=== PATIENT | male | born 1960 | race Caucasian/White ===

== ENCOUNTER 2018-04-18 04:04 | Observation (INO) | payer MEDICARE, OTHER ==
[2018-04-18] MEDS ORDERED: methylPREDNISolone Sodium Succinate 40 MG/1 ML SDV IVPUSH ONE (04:28)
[2018-04-18] MEDS ORDERED: Albuterol/Ipratropium 3.0-0.5 MG/3 ML Neb Soln NEB ONE ×2 (04:29→05:52)
--- NOTE | 2018-04-18 05:31 | EDM.PDOC ---
ED HPI GENERAL MEDICAL PROBLEM - General Chief Complaint: Cardiovascular Problem Stated Complaint: Chest Pressure Time Seen by Provider: 04/18/18 04:06 Source of Information: Reports: Patient, EMS Notes Reviewed History Limitations: Reports: No Limitations - History of Present Illness INITIAL COMMENTS - FREE TEXT/NARRATIVE: Patient is brought in this morning with complaints of chest pressure and SOB. He states he had a hard time getting off of the floor. He is coughing with dyspnea. Reports to have a history of CHF and has taken 80 mg of lasix today. He does not take a daily dose and only uses it as needed. He felt his breathing was distressed enough to take 2 doses. He was given an additional 40 mg IV lasix in the ambulance. He denies any headache, abdominal pain, blood in urine or stool. He states he has had 2 stents, the last placed 2 years ago and he is still on plavix due to his CAD. Onset: Today, Sudden Duration: Getting Worse Severity: Moderate Worsens with: Reports: Movement Associated Symptoms: Reports: Chest Pain, Shortness of Breath Chest Pressure Pain Score (Numeric/FACES): 4 - Related Data Allergies Allergy/AdvReac Type Severity Reaction Status Date / Time No Known Allergies Allergy Verified 04/18/18 04:05 ED ROS GENERAL - Review of Systems Review Of Systems: See Below Constitutional: Reports: No Symptoms HEENT: Reports: No Symptoms Respiratory: Reports: Shortness of Breath, Wheezing Cardiovascular: Reports: Other (chest pressure) Endocrine: Reports: No Symptoms GI/Abdominal: Reports: No Symptoms : Reports: No Symptoms Musculoskeletal: Reports: No Symptoms Skin: Reports: No Symptoms Neurological: Reports: No Symptoms Psychiatric: Reports: No Symptoms Hematologic/Lymphatic: Reports: No Symptoms Immunologic: Reports: No Symptoms ED EXAM, GENERAL - Physical Exam Exam: See Below Exam Limited By: No Limitations General Appearance: Alert, WD/WN, Mild Distress Eye Exam: Bilateral Eye: EOMI, PERRL Ears: Normal TMs Ear Exam: Bilateral Ear: TM normal Nose: Normal Inspection, Normal Mucosa, No Blood Throat/Mouth: Normal Inspection, Normal Lips, Normal Teeth, Normal Gums, Normal Oropharynx, Normal Voice, No Airway Compromise Head: Atraumatic, Normocephalic Neck: Normal Inspection, Supple, Non-Tender, Full Range of Motion Respiratory/Chest: No Respiratory Distress, No Accessory Muscle Use, Chest Non- Tender, Wheezing Cardiovascular: Normal Peripheral Pulses, Regular Rate, Rhythm, No Edema Peripheral Pulses: 2+: Posterior Tibial (L), Posterior Tibial (R), Dorsalis Pedis (L), Dorsalis Pedis (R) GI/Abdominal: Normal Bowel Sounds, Soft, Non-Tender, No Organomegaly, No Distention, No Abnormal Bruit, No Mass Back Exam: Normal Inspection, Full Range of Motion, NT Extremities: Normal Inspection, Normal Range of Motion, Non-Tender, Normal Capillary Refill, No Pedal Edema Neurological: Alert, Oriented, CN II-XII Intact, Normal Cognition, Normal Gait, Normal Reflexes, No Motor/Sensory Deficits Psychiatric: Normal Affect, Normal Mood Skin Exam: Warm, Dry, Intact, Normal Color, No Rash Lymphatic: No Adenopathy Course - Vital Signs Last Recorded V/S: Last Vital Signs Temp 36.7 C 04/18/18 06:35 Pulse 73 04/18/18 06:35 Resp 20 04/18/18 06:35 BP 148/94 H 04/18/18 06:35 Pulse Ox 95 04/18/18 06:35 - Orders/Labs/Meds Orders: Active Orders 24 hr Category Date Time Status Patient Status [ADT] Routine ADT 04/18/18 06:08 Ordered RT Aerosol Therapy [RC] ASDIRECTED Care 04/18/18 04:29 Ordered RT Aerosol Therapy [RC] ASDIRECTED Care 04/18/18 05:53 Ordered Chest 2V [CR] Stat Exams 04/18/18 04:06 Ordered Labs: Laboratory Tests 04/18/18 04/18/18 04/18/18 Range/Units 04:50 04:50 04:50 WBC 7.5 (4.0-10.0) x10^3/uL RBC 4.37 L (4.5-6.0) x10^6/uL Hgb 15.9 (14.0-18.0) g/dL Hct 44.8 (40.0-52.0) % MCV 102.5 H (78.0-93.0) fL MCH 36.4 H (26.0-32.0) pg MCHC 35.5 (32.0-36.0) g/dL RDW Coeff of Rhonda 12.3 (10.0-15.0) % Plt Count 216 (130-400) x10^3/uL Neut % (Auto) 78.3 (50.0-80.0) % Lymph % (Auto) 11.9 L (25.0-50.0) % [place] % (Auto) 8.4 (2.0-11.0) % Eos % (Auto) 1.1 (0.0-4.0) % Baso % (Auto) 0.3 (0.2-1.2) % PT 9.6 (9.6-11.4) SEC INR 0.9 L (2.0-3.5) Sodium 135 L (136-145) mmol/L Potassium 3.8 (3.5-5.1) mmol/L Chloride 105 (98-107) mmol/L Carbon Dioxide 26 (21-32) mmol/L Anion Gap 7.8 L (10-20) mmol/L BUN 27 H (7-18) mg/dL Creatinine 1.6 H (0.70-1.30) mg/dL Est Cr Clr Drug Dosing 57.80 mL/min Estimated GFR (MDRD) 44 Glucose 92 (74-106) mg/dL Calcium 9.2 (8.5-10.1) mg/dL Corrected Calcium 9.20 (8.5-10.1) mg/dL Magnesium (1.8-2.4) mg/dL Total Bilirubin 0.6 (0.2-1.0) mg/dL AST 23 (15-37) U/L ALT 39 (16-63) U/L Alkaline Phosphatase 76 (46-116) U/L Creatine Kinase (39-308) U/L POC Troponin I (0.00-0.08) ng/mL NT-Pro-B Natriuret Pep (<=125) pg/mL Total Protein 7.8 (6.4-8.2) g/dL Albumin 4.0 (3.4-5.0) g/dL Globulin 3.8 Albumin/Globulin Ratio 1.05 TSH, Ultra Sensitive 2.814 (0.358-3.74) uIU/mL 04/18/18 04/18/18 04/18/18 Range/Units 04:50 04:56 05:15 WBC (4.0-10.0) x10^3/uL RBC (4.5-6.0) x10^6/uL Hgb (14.0-18.0) g/dL Hct (40.0-52.0) % MCV (78.0-93.0) fL MCH (26.0-32.0) pg MCHC (32.0-36.0) g/dL RDW Coeff of Rhonda (10.0-15.0) % Plt Count (130-400) x10^3/uL Neut % (Auto) (50.0-80.0) % Lymph % (Auto) (25.0-50.0) % [place] % (Auto) (2.0-11.0) % Eos % (Auto) (0.0-4.0) % Baso % (Auto) (0.2-1.2) % PT (9.6-11.4) SEC INR (2.0-3.5) Sodium (136-145) mmol/L Potassium (3.5-5.1) mmol/L Chloride (98-107) mmol/L Carbon Dioxide (21-32) mmol/L Anion Gap (10-20) mmol/L BUN (7-18) mg/dL Creatinine (0.70-1.30) mg/dL Est Cr Clr Drug Dosing mL/min Estimated GFR (MDRD) Glucose (74-106) mg/dL Calcium (8.5-10.1) mg/dL Corrected Calcium (8.5-10.1) mg/dL Magnesium 1.3 L (1.8-2.4) mg/dL Total Bilirubin (0.2-1.0) mg/dL AST (15-37) U/L ALT (16-63) U/L Alkaline Phosphatase (46-116) U/L Creatine Kinase 135 (39-308) U/L POC Troponin I 0.01 (0.00-0.08) ng/mL NT-Pro-B Natriuret Pep 666 H (<=125) pg/mL Total Protein (6.4-8.2) g/dL Albumin (3.4-5.0) g/dL Globulin Albumin/Globulin Ratio TSH, Ultra Sensitive (0.358-3.74) uIU/mL Meds: Medications Discontinued Medications Generic Name Dose Route Start Last Admin Trade Name Freq PRN Reason Stop Dose Admin Albuterol/Ipratropium 3 ml 04/18/18 04:29 04/18/18 04:46 Duoneb 3.0-0.5 Mg/3 Ml NEB 04/18/18 04:30 3 ml ONETIME ONE Administration Albuterol/Ipratropium 3 ml 04/18/18 05:52 04/18/18 06:09 Duoneb 3.0-0.5 Mg/3 Ml NEB 04/18/18 05:53 3 ml ONETIME ONE Administration Methylprednisolone Sodium Succinate 40 mg 04/18/18 04:28 04/18/18 04:46 Solu-Medrol IVPUSH 04/18/18 04:29 40 mg ONETIME ONE Administration Departure - Departure Time of Disposition: 06:24 Disposition: Refer to Observation Condition: Good Clinical Impression: CHF (congestive heart failure), Asthma exacerbation, Hypomagnesemia Referrals: Yahaira Hines DO [Primary Care Provider] - Forms: ED Department Discharge - Problem List & Annotations (1) Asthma exacerbation SNOMED Code(s): 080741153 Code(s): J45.901 - UNSPECIFIED ASTHMA WITH (ACUTE) EXACERBATION Status: Acute Priority: Medium Current Visit: Yes Qualifiers: Asthma severity: unspecified severity Asthma persistence: unspecified Qualified Code(s): J45.901 - Unspecified asthma with (acute) exacerbation (2) CHF (congestive heart failure) SNOMED Code(s): 69245456 Code(s): I50.9 - HEART FAILURE, UNSPECIFIED Status: Acute Priority: Medium Current Visit: Yes Qualifiers: Heart failure type: unspecified Heart failure chronicity: unspecified Qualified Code(s): I50.9 - Heart failure, unspecified - Problem List Review Problem List Initiated/Reviewed/Updated: Yes - My Orders Last 24 Hours: My Active Orders 04/18/18 04:06 Chest 2V [CR] Stat 04/18/18 04:29 RT Aerosol Therapy [RC] ASDIRECTED 04/18/18 05:53 RT Aerosol Therapy [RC] ASDIRECTED 04/18/18 06:08 Patient Status [ADT] Routine - Assessment/Plan Last 24 Hours: My Active Orders 04/18/18 04:06 Chest 2V [CR] Stat 04/18/18 04:29 RT Aerosol Therapy [RC] ASDIRECTED 04/18/18 05:53 RT Aerosol Therapy [RC] ASDIRECTED 04/18/18 06:08 Patient Status [ADT] Routine Assessment:: asthma exacerbation chf hypomagnesemia Plan: Plan 1. Admit for observation 2. Asthma exacerbation - treat with scheduled nebulized inhaler, systemic corticosteroid 3. CHF exacerbation - diuretic administration, strict I and O q shift, repeat chest x-ray in AM 4. chest pressure - serial troponin trend, CTA chest 5. hypomagnesemia - replace with IV magnesium
[2018-04-18 05:44] LABS: ANION GAP 7.8 mmol/L (10-20)
[2018-04-18] MEDS ORDERED: Ondansetron 4 MG Tab.DIS PO PRN (07:45)
[2018-04-18] MEDS ORDERED: Acetaminophen 325 MG Tab PO PRN (07:45)
[2018-04-18] MEDS ORDERED: Albuterol/Ipratropium 3.0-0.5 MG/3 ML Neb Soln NEB PRN (07:45)
[2018-04-18] MEDS ORDERED: Magnesium Sulfate/Water 2 GM in Premix Bag 1 BAG IV ONE (07:50)
[2018-04-18] MEDS ORDERED: Sodium Chloride 0.9% 1,000 ML IV SCH (08:00)
[2018-04-18] MEDS ORDERED: ALPRAZolam 0.5 MG Tab PO PRN (08:07)
[2018-04-18] MEDS: Morphine 2 MG/ML Syringe IVPUSH PRN ×2 (08:09→10:43)
[2018-04-18] MEDS ORDERED: FLUoxetine 20 MG Cap PO SCH ×2 (08:15→20:00)
[2018-04-18] MEDS ORDERED: Aspirin 81 MG Tab.EC PO SCH ×2 (08:15→20:00)
[2018-04-18] MEDS ORDERED: atorvaSTATin 40 MG Tab PO SCH ×2 (08:15→20:00)
[2018-04-18] MEDS ORDERED: Clopidogrel 75 MG Tab PO SCH ×2 (08:15→20:00)
[2018-04-18] MEDS ORDERED: Spironolactone 25 MG Tab PO SCH ×2 (08:15→20:00)
[2018-04-18] MEDS ORDERED: amLODIPine 2.5 MG Tab PO SCH ×2 (08:15→20:00)
[2018-04-18] MEDS ORDERED: Metoprolol Tartrate 50 MG Tab PO SCH (08:45)
[2018-04-18] MEDS ORDERED: buPROPion 100 MG Tab.SR PO SCH (09:00)
[2018-04-18] MEDS ORDERED: Iopamidol 612 MG/ML 100 ML Bottle IVPUSH ONE (10:13)
[2018-04-18] MEDS ORDERED: Gabapentin 300 MG Cap PO SCH (12:00)
--- NOTE | 2018-04-18 12:14 | PCM.SN ---
- Free Text/Narrative Note: Chest CTA negative for PE, pneumo or hemothorax. No pneumonia seen. Minimal fluid to right side; possible inflammatory or infectious process. Troponin at 0800 slightly elevated from earliest troponin draw but still negative at 0.017. Discussed care with patient. Will discharge on albuteral inhaler if next lab draws are once again negative for inflammatory or cardiac elevations.
--- NOTE | 2018-04-18 13:32 | PCM.DCSUM1 ---
Discharge Summary - Hospital Course Diagnosis: Stroke: No - Discharge Data Discharge Date: 04/18/18 Discharge Disposition: Home, Self-Care 01 Condition: Good - Discharge Diagnosis/Problem(s) (1) Asthma exacerbation SNOMED Code(s): 579980779 ICD Code: J45.901 - UNSPECIFIED ASTHMA WITH (ACUTE) EXACERBATION Status: Acute Priority: Medium Current Visit: Yes Qualifiers: Asthma severity: unspecified severity Asthma persistence: unspecified Qualified Code(s): J45.901 - Unspecified asthma with (acute) exacerbation (2) CHF (congestive heart failure) SNOMED Code(s): 21866968 ICD Code: I50.9 - HEART FAILURE, UNSPECIFIED Status: Acute Priority: Medium Current Visit: Yes Qualifiers: Heart failure type: unspecified Heart failure chronicity: unspecified Qualified Code(s): I50.9 - Heart failure, unspecified - Patient Summary/Data Recommended Follow-up Testing/Procedures: You should follow up with a primary doctor for further investigations as to whether you have COPD or another reactive airway disease like asthma. Your labs today were largely negative for any cardiac abnormalities. Your BNP was elevated at 666, creatinine was 1.6, magnesium 1.3 You may additionally need consultation with a lung specialist, or computer tape librarian for testing and prescriptions for appropriate medications. Please return if you experience similar symptoms. Call if you have any further questions or concerns. - Patient Instructions Diet: Heart Healthy Diet Fluid Restriction: 1500 mL Activity: As Tolerated Showering/Bathing: May Shower Notify Provider of: Fever, Increased Pain, Swelling and Redness, Drainage, Nausea and/or Vomiting - Discharge Plan *PRESCRIPTION DRUG MONITORING PROGRAM REVIEWED*: Not Applicable *COPY OF PRESCRIPTION DRUG MONITORING REPORT IN PATIENT ANTHONY: Not Applicable Home Medications: Home Meds ALPRAZolam [Xanax] 0.5 mg PO TID PRN 04/18/18 [History] Aspirin [Halfprin] 81 mg PO DAILY 04/18/18 [History] Clopidogrel [Plavix] 75 mg PO DAILY 04/18/18 [History] FLUoxetine HCl [Prozac] 80 mg PO DAILY 04/18/18 [History] Furosemide 40 mg PO DAILY 04/18/18 [History] Gabapentin [Neurontin] 300 mg PO TID 04/18/18 [History] Losartan Potassium [Cozaar] 100 mg PO DAILY 04/18/18 [History] Metoprolol Tartrate [Lopressor] 100 mg PO BID 04/18/18 [History] Spironolactone [Aldactone] 25 mg PO DAILY 04/18/18 [History] Testosterone [Androgel] 5 gm TD DAILY 04/18/18 [History] amLODIPine Besylate [Norvasc] 2.5 mg PO DAILY 04/18/18 [History] atorvaSTATin Calcium [Lipitor] 80 mg PO DAILY 04/18/18 [History] buPROPion HCl [Wellbutrin SR] 150 mg PO BID 04/18/18 [History] Forms: ED Department Discharge Referrals: Yahaira Hines DO [Primary Care Provider] - - General Info Date of Service: 04/18/18 Admission Dx/Problem (Free Text: shortness of breath, chest pressure Functional Status: Reports: Pain Controlled - Review of Systems General: Reports: No Symptoms HEENT: Reports: No Symptoms Pulmonary: Reports: Shortness of Breath, Wheezing Cardiovascular: Reports: Chest Pain Gastrointestinal: Reports: No Symptoms Genitourinary: Reports: No Symptoms Musculoskeletal: Reports: No Symptoms Skin: Reports: No Symptoms Neurological: Reports: No Symptoms Psychiatric: Reports: No Symptoms - Patient Data Vitals - Most Recent: Last Vital Signs Temp 36.2 C 04/18/18 09:44 Pulse 81 04/18/18 09:48 Resp 16 04/18/18 09:44 BP 138/91 H 04/18/18 09:48 Pulse Ox 96 04/18/18 09:44 Weight - Most Recent: 108.635 kg I&O - Last 24 hours: Intake & Output 04/17/18 04/18/18 04/18/18 22:59 06:59 14:59 Intake Total 600 680 Balance 600 680 Lab Results - Last 24 hrs: Laboratory Results - last 24 hr 04/18/18 04/18/18 04/18/18 Range/Units 04:50 04:50 04:50 WBC 7.5 (4.0-10.0) x10^3/uL RBC 4.37 L (4.5-6.0) x10^6/uL Hgb 15.9 (14.0-18.0) g/dL Hct 44.8 (40.0-52.0) % MCV 102.5 H (78.0-93.0) fL MCH 36.4 H (26.0-32.0) pg MCHC 35.5 (32.0-36.0) g/dL RDW Coeff of Rhonda 12.3 (10.0-15.0) % Plt Count 216 (130-400) x10^3/uL Neut % (Auto) 78.3 (50.0-80.0) % Lymph % (Auto) 11.9 L (25.0-50.0) % [place] % (Auto) 8.4 (2.0-11.0) % Eos % (Auto) 1.1 (0.0-4.0) % Baso % (Auto) 0.3 (0.2-1.2) % PT 9.6 (9.6-11.4) SEC INR 0.9 L (2.0-3.5) D-Dimer, Quantitative (<=0.58) mg/LFEU Sodium 135 L (136-145) mmol/L Potassium 3.8 (3.5-5.1) mmol/L Chloride 105 (98-107) mmol/L Carbon Dioxide 26 (21-32) mmol/L Anion Gap 7.8 L (10-20) mmol/L BUN 27 H (7-18) mg/dL Creatinine 1.6 H (0.70-1.30) mg/dL Est Cr Clr Drug Dosing 57.80 mL/min Estimated GFR (MDRD) 44 Glucose 92 (74-106) mg/dL Lactic Acid (0.4-2.0) mmol/L Calcium 9.2 (8.5-10.1) mg/dL Corrected Calcium 9.20 (8.5-10.1) mg/dL Magnesium (1.8-2.4) mg/dL Total Bilirubin 0.6 (0.2-1.0) mg/dL AST 23 (15-37) U/L ALT 39 (16-63) U/L Alkaline Phosphatase 76 (46-116) U/L Creatine Kinase (39-308) U/L POC Troponin I (0.00-0.08) ng/mL Troponin I (<=0.056) ng/mL NT-Pro-B Natriuret Pep (<=125) pg/mL Total Protein 7.8 (6.4-8.2) g/dL Albumin 4.0 (3.4-5.0) g/dL Globulin 3.8 Albumin/Globulin Ratio 1.05 TSH, Ultra Sensitive 2.814 (0.358-3.74) uIU/mL 04/18/18 04/18/18 04/18/18 Range/Units 04:50 04:56 05:15 WBC (4.0-10.0) x10^3/uL RBC (4.5-6.0) x10^6/uL Hgb (14.0-18.0) g/dL Hct (40.0-52.0) % MCV (78.0-93.0) fL MCH (26.0-32.0) pg MCHC (32.0-36.0) g/dL RDW Coeff of Rhonda (10.0-15.0) % Plt Count (130-400) x10^3/uL Neut % (Auto) (50.0-80.0) % Lymph % (Auto) (25.0-50.0) % [place] % (Auto) (2.0-11.0) % Eos % (Auto) (0.0-4.0) % Baso % (Auto) (0.2-1.2) % PT (9.6-11.4) SEC INR (2.0-3.5) D-Dimer, Quantitative (<=0.58) mg/LFEU Sodium (136-145) mmol/L Potassium (3.5-5.1) mmol/L Chloride (98-107) mmol/L Carbon Dioxide (21-32) mmol/L Anion Gap (10-20) mmol/L BUN (7-18) mg/dL Creatinine (0.70-1.30) mg/dL Est Cr Clr Drug Dosing mL/min Estimated GFR (MDRD) Glucose (74-106) mg/dL Lactic Acid (0.4-2.0) mmol/L Calcium (8.5-10.1) mg/dL Corrected Calcium (8.5-10.1) mg/dL Magnesium 1.3 L (1.8-2.4) mg/dL Total Bilirubin (0.2-1.0) mg/dL AST (15-37) U/L ALT (16-63) U/L Alkaline Phosphatase (46-116) U/L Creatine Kinase 135 (39-308) U/L POC Troponin I 0.01 (0.00-0.08) ng/mL Troponin I (<=0.056) ng/mL NT-Pro-B Natriuret Pep 666 H (<=125) pg/mL Total Protein (6.4-8.2) g/dL Albumin (3.4-5.0) g/dL Globulin Albumin/Globulin Ratio TSH, Ultra Sensitive (0.358-3.74) uIU/mL 04/18/18 04/18/18 04/18/18 Range/Units 08:20 08:20 12:00 WBC (4.0-10.0) x10^3/uL RBC (4.5-6.0) x10^6/uL Hgb (14.0-18.0) g/dL Hct (40.0-52.0) % MCV (78.0-93.0) fL MCH (26.0-32.0) pg MCHC (32.0-36.0) g/dL RDW Coeff of Rhonda (10.0-15.0) % Plt Count (130-400) x10^3/uL Neut % (Auto) (50.0-80.0) % Lymph % (Auto) (25.0-50.0) % [place] % (Auto) (2.0-11.0) % Eos % (Auto) (0.0-4.0) % Baso % (Auto) (0.2-1.2) % PT (9.6-11.4) SEC INR (2.0-3.5) D-Dimer, Quantitative 1.09 H (<=0.58) mg/LFEU Sodium (136-145) mmol/L Potassium (3.5-5.1) mmol/L Chloride (98-107) mmol/L Carbon Dioxide (21-32) mmol/L Anion Gap (10-20) mmol/L BUN (7-18) mg/dL Creatinine (0.70-1.30) mg/dL Est Cr Clr Drug Dosing mL/min Estimated GFR (MDRD) Glucose (74-106) mg/dL Lactic Acid (0.4-2.0) mmol/L Calcium (8.5-10.1) mg/dL Corrected Calcium (8.5-10.1) mg/dL Magnesium (1.8-2.4) mg/dL Total Bilirubin (0.2-1.0) mg/dL AST (15-37) U/L ALT (16-63) U/L Alkaline Phosphatase (46-116) U/L Creatine Kinase 144 (39-308) U/L POC Troponin I (0.00-0.08) ng/mL Troponin I < 0.017 < 0.017 (<=0.056) ng/mL NT-Pro-B Natriuret Pep (<=125) pg/mL Total Protein (6.4-8.2) g/dL Albumin (3.4-5.0) g/dL Globulin Albumin/Globulin Ratio TSH, Ultra Sensitive (0.358-3.74) uIU/mL 04/18/18 04/18/18 Range/Units 12:00 12:00 WBC (4.0-10.0) x10^3/uL RBC (4.5-6.0) x10^6/uL Hgb (14.0-18.0) g/dL Hct (40.0-52.0) % MCV (78.0-93.0) fL MCH (26.0-32.0) pg MCHC (32.0-36.0) g/dL RDW Coeff of Rhonda (10.0-15.0) % Plt Count (130-400) x10^3/uL Neut % (Auto) (50.0-80.0) % Lymph % (Auto) (25.0-50.0) % [place] % (Auto) (2.0-11.0) % Eos % (Auto) (0.0-4.0) % Baso % (Auto) (0.2-1.2) % PT (9.6-11.4) SEC INR (2.0-3.5) D-Dimer, Quantitative (<=0.58) mg/LFEU Sodium (136-145) mmol/L Potassium (3.5-5.1) mmol/L Chloride (98-107) mmol/L Carbon Dioxide (21-32) mmol/L Anion Gap (10-20) mmol/L BUN (7-18) mg/dL Creatinine (0.70-1.30) mg/dL Est Cr Clr Drug Dosing mL/min Estimated GFR (MDRD) Glucose (74-106) mg/dL Lactic Acid 1.5 (0.4-2.0) mmol/L Calcium (8.5-10.1) mg/dL Corrected Calcium (8.5-10.1) mg/dL Magnesium 2.3 (1.8-2.4) mg/dL Total Bilirubin (0.2-1.0) mg/dL AST (15-37) U/L ALT (16-63) U/L Alkaline Phosphatase (46-116) U/L Creatine Kinase (39-308) U/L POC Troponin I (0.00-0.08) ng/mL Troponin I (<=0.056) ng/mL NT-Pro-B Natriuret Pep (<=125) pg/mL Total Protein (6.4-8.2) g/dL Albumin (3.4-5.0) g/dL Globulin Albumin/Globulin Ratio TSH, Ultra Sensitive (0.358-3.74) uIU/mL Med Orders - Current: Current Medications Acetaminophen (Tylenol) 650 mg PO Q4H PRN PRN Reason: Pain (Mild 1-3)/fever Last Admin: 04/18/18 10:42 Dose: 650 mg Albuterol/Ipratropium (Duoneb 3.0-0.5 Mg/3 Ml) 3 ml NEB Q4H PRN PRN Reason: dyspnea/wheezing Last Admin: 04/18/18 08:28 Dose: 3 ml Alprazolam (Xanax) 0.5 mg PO TID PRN PRN Reason: Anxiety Amlodipine Besylate (Norvasc) 2.5 mg PO DAILY@1999 [facility] Aspirin (Halfprin) 81 mg PO DAILY@1999 [facility] Atorvastatin Calcium (Lipitor) 80 mg PO DAILY@1999 [facility] Bupropion HCl (Wellbutrin Sr) 150 mg PO BID [facility] Last Admin: 04/18/18 09:46 Dose: 150 mg Clopidogrel Bisulfate (Plavix) 75 mg PO DAILY@1999 [facility] Fluoxetine HCl (Prozac) 80 mg PO DAILY@1999 [facility] Furosemide (Lasix) 40 mg IV BIDDIURETIC [facility] Gabapentin (Neurontin) 300 mg PO TID [facility] Last Admin: 04/18/18 11:59 Dose: 300 mg Sodium Chloride (Normal Saline) 1,000 mls @ 25 mls/hr IV ASDIRECTED [facility] Last Admin: 04/18/18 08:11 Dose: 25 mls/hr Losartan Potassium (Cozaar) 100 mg PO DAILY@1999 [facility] Metoprolol Tartrate (Lopressor) 100 mg PO BID [facility] Last Admin: 04/18/18 09:48 Dose: 100 mg Morphine Sulfate (Morphine) 2 mg IVPUSH Q2H PRN PRN Reason: Pain (severe 7-10) Last Admin: 04/18/18 10:43 Dose: 2 mg Ondansetron HCl (Zofran Odt) 4 mg PO Q6H PRN PRN Reason: nausea, able to take PO Spironolactone (Aldactone) 25 mg PO DAILY@1999 [facility] Discontinued Medications Albuterol/Ipratropium (Duoneb 3.0-0.5 Mg/3 Ml) 3 ml NEB ONETIME ONE Stop: 04/18/18 04:30 Last Admin: 04/18/18 04:46 Dose: 3 ml Albuterol/Ipratropium (Duoneb 3.0-0.5 Mg/3 Ml) 3 ml NEB ONETIME ONE Stop: 04/18/18 05:53 Last Admin: 04/18/18 06:09 Dose: 3 ml Amlodipine Besylate (Norvasc) 2.5 mg PO DAILY [facility] Last Admin: 04/18/18 08:58 Dose: Not Given Aspirin (Halfprin) 81 mg PO DAILY [facility] Last Admin: 04/18/18 08:59 Dose: Not Given Atorvastatin Calcium (Lipitor) 80 mg PO DAILY [facility] Last Admin: 04/18/18 09:00 Dose: Not Given Clopidogrel Bisulfate (Plavix) 75 mg PO DAILY [facility] Last Admin: 04/18/18 08:58 Dose: Not Given Fluoxetine HCl (Prozac) 80 mg PO DAILY [facility] Last Admin: 04/18/18 08:58 Dose: Not Given Magnesium Sulfate 2 gm/ Premix 50 mls @ 25 mls/hr IV ONETIME ONE Stop: 04/18/18 09:49 Last Admin: 04/18/18 08:11 Dose: 25 mls/hr Iopamidol (Isovue-300 (61%)) 100 ml IVPUSH ONETIME ONE Stop: 04/18/18 10:14 Last Admin: 04/18/18 10:29 Dose: 100 ml Methylprednisolone Sodium Succinate (Solu-Medrol) 40 mg IVPUSH ONETIME ONE Stop: 04/18/18 04:29 Last Admin: 04/18/18 04:46 Dose: 40 mg Spironolactone (Aldactone) 25 mg PO DAILY [facility] Last Admin: 04/18/18 08:59 Dose: Not Given - Exam General: Reports: Alert, Oriented, Cooperative HEENT: Reports: Pupils Equal, Pupils Reactive Lungs: Reports: Wheezing (improved from earlier today) Cardiovascular: Reports: Regular Rate, Regular Rhythm GI/Abdominal Exam: Normal Bowel Sounds, Soft, Non-Tender, No Organomegaly, No Distention, No Abnormal Bruit, No Mass, Pelvis Stable Extremities: Normal Inspection, Normal Range of Motion, Non-Tender, No Pedal Edema, Normal Capillary Refill Skin: Reports: Warm, Dry, Intact Wound/Incisions: Reports: Healing Well Neurological: Reports: No New Focal Deficit Psy/Mental Status: Reports: Anxious
[2018-04-18] MEDS ORDERED: Take Home: Albuterol 6.7 GM Inhaler, 1 Inhaler Pack INH ONE (13:37)
[2018-04-18] MEDS ORDERED: Albuterol 8 GM Inhaler INH ONE (13:49)
[2018-04-18] MEDS ORDERED: Furosemide 40 MG/4 ML VIAL IV SCH (16:00)
[2018-04-19] MEDS ORDERED: Losartan 50 MG Tab PO SCH (20:00)
== END 2018-04-18 14:20 | disposition home or self-care (01) ==
LOC: VM.ED 04:04 → VM.MS 06:30
PROVIDERS: ADMIT Nurse Practitioner Family; ATTEND Nurse Practitioner Family
DX: J45.901 Unspecified asthma with (acute) exacerbation (principal); I50.9 Heart failure, unspecified; Z79.02 Long term (current) use of antithrombotics/antiplatelets; Z79.899 Other long term (current) drug therapy; R07.89 Other chest pain; E83.42 Hypomagnesemia
CPT/HCPCS: 36415; 71046; 71275; 80053; 82550; 83605; 83735; 83880; 84443; 84484; 85025; 85379; 85610; 93005; 94640; 94760; 96374; 99285; A9270; J2270; J2920; J7030; Q9967; 96361; 96365; 96366; 96375; 96376; G0378; J3475; J7620-GY

== ENCOUNTER 2018-10-09 15:24 | Emergency (ER) | payer MEDICARE, OTHER ==
[2018-10-09] MEDS ORDERED: Sodium Chloride 0.9% 10 ML Syringe FLUSH PRN (15:44)
[2018-10-09] MEDS ORDERED: Aspirin 81 MG Tab.Chew PO ONE (15:46)
[2018-10-09 16:32] LABS: CHLORIDE,CL 108 mmol/L (98-107); SODIUM,NA 145 mmol/L (136-145)
[2018-10-09 16:33] LABS: ANION GAP 13.9 mmol/L (10-20)
[2018-10-09] MEDS ORDERED: LORazepam 2 MG/ML SDV IVPUSH ONE (16:38)
[2018-10-09] MEDS ORDERED: Furosemide 40 MG/4 ML VIAL IV ONE (16:38)
--- NOTE | 2018-10-09 17:17 | CR ---
[id number] RAD/RAD Abdomen 3V EXAM: RAD Abdomen 3V INDICATION: ABDOMINAL "BLOATING". COMPARISON: None. DISCUSSION: Unobstructed bowel gas pattern. No radiographically evident pneumoperitoneum. Moderate colonic stool burden. Correlate for constipation. Vascular calcifications in the pelvis. IMPRESSION: No acute findings in the abdomen. Abdiaziz Tariq MD 10/09/18 1991 Thank you for allowing us to participate in the care of your patient.
--- NOTE | 2018-10-09 18:54 | EDM.PDOC ---
ED HPI GENERAL MEDICAL PROBLEM - General Chief Complaint: Chest Pain Stated Complaint: DIZZY Time Seen by Provider: 10/09/18 15:24 Source of Information: Reports: Patient History Limitations: Reports: No Limitations - History of Present Illness INITIAL COMMENTS - FREE TEXT/NARRATIVE: Pt. presents to ER with complaints of shortness of breath, 10# weight gain, and feeling bloated. Pt. states that he recently stopped taking his lasix. He he a history of CKD and CHF and has had a previous AK and has stents. 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 Denies any fever or chills. No chest pain. Denies any increased peripheral edema. Onset Date: 10/08/18 Location: Reports: Generalized Associated Symptoms: Reports: Shortness of Breath Middle Abdomen Pain Score (Numeric/FACES): 3 - Related Data Allergies Allergy/AdvReac Type Severity Reaction Status Date / Time No Known Allergies Allergy Verified 10/09/18 15:48 Home Meds: Home Meds ALPRAZolam [Xanax] 3 - 4 tab PO BEDTIME PRN 04/18/18 [History] Aspirin [Halfprin] 81 mg PO DAILY 04/18/18 [History] Clopidogrel [Plavix] 75 mg PO DAILY 04/18/18 [History] FLUoxetine HCl [Prozac] 80 mg PO DAILY 04/18/18 [History] Furosemide 40 mg PO DAILY 04/18/18 [History] Gabapentin [Neurontin] 600 mg PO TID 04/18/18 [History] Losartan Potassium [Cozaar] 100 mg PO DAILY 04/18/18 [History] Metoprolol Tartrate [Lopressor] 100 mg PO BID 04/18/18 [History] Spironolactone [Aldactone] 25 mg PO DAILY 04/18/18 [History] amLODIPine Besylate [Norvasc] 5 mg PO DAILY 04/18/18 [History] atorvaSTATin Calcium [Lipitor] 80 mg PO DAILY 04/18/18 [History] buPROPion HCl [Wellbutrin SR] 150 mg PO BID 04/18/18 [History] Albuterol [Proventil HFA] 2 puff INH Q6H PRN 10/09/18 [History] Mometasone Furoate [Elocon] 15 gm TP DAILY PRN 10/09/18 [History] Pantoprazole Sodium 40 mg PO DAILY 10/09/18 [History] atorvaSTATin [Lipitor] 80 mg PO DAILY 10/09/18 [History] metroNIDAZOLE [Metrogel] 1 applic TP DAILY 10/09/18 [History] valACYclovir [Valtrex] 1,000 mg PO DAILY 10/09/18 [History] Past Medical History Cardiovascular History: Reports: High Cholesterol, AK, SOB on Exertion, Stents - Past Surgical History Cardiovascular Surgical History: Reports: Coronary Artery Stent Social & Family History - Tobacco Use Smoking Status *Q: Unknown Ever Smoked ED ROS GENERAL - Review of Systems Review Of Systems: See Below Constitutional: Reports: No Symptoms HEENT: Reports: No Symptoms Respiratory: Reports: Shortness of Breath Cardiovascular: Reports: Dyspnea on Exertion, Orthopnea, Palpitations Endocrine: Reports: No Symptoms GI/Abdominal: Reports: No Symptoms : Reports: No Symptoms Musculoskeletal: Reports: No Symptoms Skin: Reports: No Symptoms Neurological: Reports: No Symptoms Psychiatric: Reports: No Symptoms Hematologic/Lymphatic: Reports: No Symptoms Immunologic: Reports: No Symptoms ED EXAM, GENERAL - Physical Exam Exam: See Below Exam Limited By: No Limitations General Appearance: Alert, WD/WN, No Apparent Distress Neck: Normal Inspection, Supple, Non-Tender, Full Range of Motion Respiratory/Chest: No Respiratory Distress, Lungs Clear, Normal Breath Sounds, No Accessory Muscle Use, Chest Non-Tender Cardiovascular: Normal Peripheral Pulses, Regular Rate, Rhythm, No Edema, No Gallop, No JVD, No Murmur, No Rub Peripheral Pulses: 4+: Radial (L), Radial (R) GI/Abdominal: Normal Bowel Sounds, Soft, Non-Tender, No Organomegaly, No Distention, No Abnormal Bruit, No Mass (Male) Exam: Deferred Rectal (Males) Exam: Deferred Back Exam: Normal Inspection, Full Range of Motion, NT Extremities: Normal Inspection, Normal Range of Motion, Non-Tender, Normal Capillary Refill, No Pedal Edema Neurological: Alert, Oriented, CN II-XII Intact, Normal Cognition, Normal Gait, Normal Reflexes, No Motor/Sensory Deficits Psychiatric: Normal Affect, Normal Mood Skin Exam: Warm, Dry, Intact, Normal Color, No Rash Lymphatic: No Adenopathy EKG INTERPRETATION Rhythm: NSR [place]: Normal P-Wave: Present QRS: Normal ST-T: Normal QT: Normal Course - Vital Signs Last Recorded V/S: Last Vital Signs Temp 35.8 C 10/09/18 15:24 Pulse 70 10/09/18 15:24 Resp 20 10/09/18 15:24 BP 140/92 H 10/09/18 15:24 Pulse Ox 100 10/09/18 15:24 - Orders/Labs/Meds Orders: Active Orders 24 hr Category Date Time Status Peripheral IV Insertion Adult [OM.PC] Routine Oth 10/09/18 15:45 Ordered Labs: Laboratory Tests 10/09/18 10/09/18 10/09/18 Range/Units 15:52 15:52 15:52 WBC 5.1 (4.0-10.0) x10^3/uL RBC 3.75 L (4.5-6.0) x10^6/uL Hgb 13.1 L D (14.0-18.0) g/dL Hct 38.8 L (40.0-52.0) % MCV 103.5 H (78.0-93.0) fL MCH 34.9 H (26.0-32.0) pg MCHC 33.8 (32.0-36.0) g/dL RDW Coeff of Rhonda 12.9 (10.0-15.0) % Plt Count 155 (130-400) x10^3/uL Neut % (Auto) 71.4 (50.0-80.0) % Lymph % (Auto) 18.1 L (25.0-50.0) % [place] % (Auto) 8.3 (2.0-11.0) % Eos % (Auto) 1.8 (0.0-4.0) % Baso % (Auto) 0.4 (0.2-1.2) % PT 10.2 (9.6-11.4) SEC INR 1.0 L (2.0-3.5) Sodium 145 D (136-145) mmol/L Potassium 4.9 (3.5-5.1) mmol/L Chloride 108 H (98-107) mmol/L Carbon Dioxide 28 (21-32) mmol/L Anion Gap 13.9 (10-20) mmol/L BUN 23 H (7-18) mg/dL Creatinine 1.5 H (0.70-1.30) mg/dL Est Cr Clr Drug Dosing TNP Estimated GFR (MDRD) 48 Glucose 90 (74-106) mg/dL Lactic Acid (0.4-2.0) mmol/L Calcium 8.9 (8.5-10.1) mg/dL Corrected Calcium 9.54 (8.5-10.1) mg/dL Phosphorus 3.4 (2.6-4.7) mg/dL Magnesium 1.9 (1.8-2.4) mg/dL Total Bilirubin 1.2 H (0.2-1.0) mg/dL AST 42 H (15-37) U/L ALT 47 (16-63) U/L Alkaline Phosphatase 99 (46-116) U/L POC Troponin I (0.00-0.08) ng/mL C-Reactive Protein 0.8 (<=0.9) mg/dL NT-Pro-B Natriuret Pep 617 H (<=125) pg/mL Total Protein 6.1 L (6.4-8.2) g/dL Albumin 3.2 L (3.4-5.0) g/dL Globulin 2.9 Albumin/Globulin Ratio 1.10 Amylase 52 (25-115) U/L Lipase 216 (73-393) U/L TSH, Ultra Sensitive 1.589 (0.358-3.74) uIU/mL Urine Color (YELLOW) Urine Appearance (CLEAR) Urine pH (5.0-8.0) Ur Specific [place] Urine Protein (NEGATIVE) mg/dL Urine Glucose (UA) (NEGATIVE) mg/dL Urine Ketones (NEGATIVE) mg/dL Urine Occult Blood (NEGATIVE) Urine Nitrite (NEGATIVE) Urine Bilirubin (NEGATIVE) Urine Urobilinogen (0.2) EU/dL Ur Leukocyte Esterase (NEGATIVE) Urine RBC (NOT SEEN) /HPF Urine WBC (NOT SEEN) /HPF Ur Squamous Epith Cells (NEGATIVE) /HPF Urine Bacteria (NEGATIVE) /HPF Hyaline Casts (NEGATIVE) /HPF Urine Mucus (NEGATIVE) /LPF 10/09/18 10/09/18 10/09/18 Range/Units 15:52 15:59 16:04 WBC (4.0-10.0) x10^3/uL RBC (4.5-6.0) x10^6/uL Hgb (14.0-18.0) g/dL Hct (40.0-52.0) % MCV (78.0-93.0) fL MCH (26.0-32.0) pg MCHC (32.0-36.0) g/dL RDW Coeff of Rhonda (10.0-15.0) % Plt Count (130-400) x10^3/uL Neut % (Auto) (50.0-80.0) % Lymph % (Auto) (25.0-50.0) % [place] % (Auto) (2.0-11.0) % Eos % (Auto) (0.0-4.0) % Baso % (Auto) (0.2-1.2) % PT (9.6-11.4) SEC INR (2.0-3.5) Sodium (136-145) mmol/L Potassium (3.5-5.1) mmol/L Chloride (98-107) mmol/L Carbon Dioxide (21-32) mmol/L Anion Gap (10-20) mmol/L BUN (7-18) mg/dL Creatinine (0.70-1.30) mg/dL Est Cr Clr Drug Dosing Estimated GFR (MDRD) Glucose (74-106) mg/dL Lactic Acid 1.1 (0.4-2.0) mmol/L Calcium (8.5-10.1) mg/dL Corrected Calcium (8.5-10.1) mg/dL Phosphorus (2.6-4.7) mg/dL Magnesium (1.8-2.4) mg/dL Total Bilirubin (0.2-1.0) mg/dL AST (15-37) U/L ALT (16-63) U/L Alkaline Phosphatase (46-116) U/L POC Troponin I 0.01 (0.00-0.08) ng/mL C-Reactive Protein (<=0.9) mg/dL NT-Pro-B Natriuret Pep (<=125) pg/mL Total Protein (6.4-8.2) g/dL Albumin (3.4-5.0) g/dL Globulin Albumin/Globulin Ratio Amylase (25-115) U/L Lipase (73-393) U/L TSH, Ultra Sensitive (0.358-3.74) uIU/mL Urine Color Dark yellow H (YELLOW) Urine Appearance Clear (CLEAR) Urine pH 6.0 (5.0-8.0) Ur Specific [place] 1.020 Urine Protein Negative (NEGATIVE) mg/dL Urine Glucose (UA) Negative (NEGATIVE) mg/dL Urine Ketones Negative (NEGATIVE) mg/dL Urine Occult Blood Negative (NEGATIVE) Urine Nitrite Negative (NEGATIVE) Urine Bilirubin Negative (NEGATIVE) Urine Urobilinogen 1.0 (0.2) EU/dL Ur Leukocyte Esterase Negative (NEGATIVE) Urine RBC Not seen (NOT SEEN) /HPF Urine WBC Not seen (NOT SEEN) /HPF Ur Squamous Epith Cells Rare (NEGATIVE) /HPF Urine Bacteria Not seen (NEGATIVE) /HPF Hyaline Casts Few H (NEGATIVE) /HPF Urine Mucus Few H (NEGATIVE) /LPF Meds: Medications Discontinued Medications Generic Name Dose Route Start Last Admin Trade Name Freq PRN Reason Stop Dose Admin Aspirin 324 mg 10/09/18 15:46 10/09/18 15:28 Aspirin PO 10/09/18 15:47 324 mg ONETIME ONE Administration Furosemide 40 mg 10/09/18 16:38 10/09/18 17:05 Lasix IV 10/09/18 16:39 40 mg ONETIME ONE Administration Lorazepam 1 mg 10/09/18 16:38 10/09/18 17:07 Ativan IVPUSH 10/09/18 16:39 1 mg ONETIME ONE Administration Sodium Chloride 10 ml 10/09/18 15:44 Saline Flush FLUSH ASDIRECTED PRN Keep Vein Open Departure - Departure Time of Disposition: 17:46 Disposition: Home, Self-Care 01 Clinical Impression: CHF (congestive heart failure) Qualifiers: Heart failure type: unspecified Heart failure chronicity: unspecified Qualified Code(s): I50.9 - Heart failure, unspecified - Discharge Information Instructions: Heart Failure, [id number], Living With Heart Failure Referrals: Yahaira Hines DO [Primary Care Provider] - Forms: ED Department Discharge Additional Instructions: Restart your lasix. I would take the full dose for several days then follow-up in clinic for repeat labs. Continue with your other medications as well, including your xanax. Return to ER if increased shortness of breath, chest pain. - My Orders Last 24 Hours: My Active Orders 10/09/18 15:45 Peripheral IV Insertion Adult [OM.PC] Routine - Assessment/Plan Last 24 Hours: My Active Orders 10/09/18 15:45 Peripheral IV Insertion Adult [OM.PC] Routine Plan: Restart your lasix. I would take the full dose for several days then follow-up in clinic for repeat labs. Continue with your other medications as well, including your xanax. Return to ER if increased shortness of breath, chest pain. Try miralax to aid is softening stools.
== END 2018-10-09 17:46 | disposition home or self-care (01) ==
LOC: VM.ED 15:24
DX: I50.9 Heart failure, unspecified (principal); N18.9 Chronic kidney disease, unspecified; E78.00 Pure hypercholesterolemia, unspecified; I25.2 Old myocardial infarction; Z79.899 Other long term (current) drug therapy; Z79.82 Long term (current) use of aspirin
CPT/HCPCS: 36415; 74022; 80053; 81001; 82150; 83605; 83690; 83735; 83880; 84100; 84443; 84484; 85025; 85610; 86140; 93005; 96374; 96375; 99285; A9270; J1940; J2060